=== PATIENT | male | born 1995 | race African-American/Black ===

== ENCOUNTER 2023-06-30 01:13 | Emergency (ER) | payer MEDICAID ==
[~2023-06-30] VITALS: Ht 188 cm; Wt 110.0 kg
[2023-06-30 01:15] VITALS: TEMP 97.9; O2SAT 100
[2023-06-30 01:39] LABS: BASOPHILS % 0.4 % (0.0-2.0); DIFFERENTIAL COMMENT 0; EOSINOPHILS % 2.4 % (0.0-5.0); HEMATOCRIT. 42.7 % (42.0-52.0); LYMPHOCYTES % 48.7 % (20.0-50.0); MEAN CORPUSCULAR HEMOGLOBIN 24.4 pg (28.0-32.0); MEAN CORPUSCULAR HGB CONC 32.8 g/dL (31.0-37.0); MEAN CORPUSCULAR VOLUME 74.4 fL (80.0-94.0); MEAN PLATELET VOLUME 8.1 fl (7.4-10.4); MONOCYTES % 7.5 % (2.0-8.0); PLATELET 192 x1000/uL (130-400); RED BLOOD CELL COUNT 5.74 mill/uL (4.7-6.1); RED CELL DISTRIBUTION WIDTH 13.9 % (11.6-14.6); WHITE BLOOD COUNT 6.5 x1000/uL (4.5-11.0)
[2023-06-30] MEDS: SODIUM CHLORIDE 0.9% 1,000 ML IV ONE (01:50)
[2023-06-30] MEDS: LEVETIRACETAM 500MG PREMIX 100 ML IV ONE (01:50)
[2023-06-30 02:05] LABS: ALANINE AMINOTRANSFERASE 12 IU/L (10-49); ALBUMIN 4.7 g/dL (3.2-4.8); ASPARTATE AMINOTRANSFERASE 17 IU/L (<34); BILIRUBIN TOTAL 0.6 mg/dL (0.1-1.0); CALCIUM 9.3 mg/dL (8.7-10.4); CARBON DIOXIDE 22 mEq/L (21-32); CHLORIDE 105 mEq/L (98-107); CREATININE 1.5 mg/dL (0.6-1.3); GLUCOSE 95 mg/dL (70-105); POTASSIUM 3.9 mEq/L (3.5-5.1); PROTEIN TOTAL 7.8 g/dL (6.0-8.3); SODIUM 139 mEq/L (136-145); UREA NITROGEN BLOOD 11 mg/dL (9-23)
[2023-06-30 02:20] LABS: ETHANOL BLOOD < 10 mg/dL (<10)
[2023-06-30 05:25] VITALS: BP 115/60; PULSE 70; RESP 17
== END 2023-06-30 05:44 | disposition home or self-care (01) ==
LOC: ER 01:13
DX: G40.901 Epilepsy, unspecified, not intractable, with status epilepticus (principal); Z91.148 Patient's other noncompliance with medication regimen for other reason; Z00.00 Encounter for general adult medical examination without abnormal findings
CPT/HCPCS: 80053; 80320; 82962; 85025; 36415; 96374; 99283; J1953; J7030; G0480

== ENCOUNTER 2024-03-23 17:18 | Emergency (ER) | payer MEDICAID ==
[~2024-03-23] VITALS: Ht 193 cm; Wt 104.0 kg
[2024-03-23 18:13] VITALS: O2SAT 98
[2024-03-23 23:59] LABS: HEMATOCRIT. 46.9 % (42.0-52.0); HEMOGLOBIN. 15.1 g/dL (14.0-18.0); MEAN CORPUSCULAR HGB CONC 32.1 g/dL (31.0-37.0); MEAN CORPUSCULAR VOLUME 74.6 fL (80.0-94.0); PLATELET 136 x1000/uL (130-400); RED BLOOD CELL COUNT 6.29 mill/uL (4.7-6.1); RED CELL DISTRIBUTION WIDTH 14.5 % (11.6-14.6); WHITE BLOOD COUNT 2.8 x1000/uL (4.5-11.0)
[2024-03-24 00:05] LABS: CARBON DIOXIDE 25 mEq/L (21-32); CHLORIDE 101 mEq/L (98-107); POTASSIUM 3.5 mEq/L (3.5-5.1); SODIUM 138 mEq/L (136-145)
[2024-03-24 00:06] LABS: CALCIUM 9.4 mg/dL (8.7-10.4)
[2024-03-24 00:08] LABS: DIFFERENTIAL COMMENT 1
[2024-03-24 00:11] LABS: CREATININE 1.4 mg/dL (0.6-1.3); GLUCOSE 98 mg/dL (70-105); UREA NITROGEN BLOOD 11 mg/dL (9-23)
[2024-03-24 00:12] LABS: ALANINE AMINOTRANSFERASE 16 IU/L (10-49); ASPARTATE AMINOTRANSFERASE 26 IU/L (<34)
[2024-03-24 00:13] LABS: ALBUMIN 4.6 g/dL (3.2-4.8); BILIRUBIN TOTAL 0.7 mg/dL (0.1-1.0); PROTEIN TOTAL 7.4 g/dL (6.0-8.3)
[2024-03-24] MEDS ORDERED: METH-653 MT (00:44)
[2024-03-24] MEDS ORDERED: ACET-2708 MT (00:44)
[2024-03-24 00:56] VITALS: BP 123/72; PULSE 89; RESP 19; TEMP 36.89184; O2SAT 98
[2024-03-24 06:53] LABS: MICROCYTOSIS 2+; PLATELET ESTIMATE NORMAL
== END 2024-03-24 07:39 | disposition home or self-care (01) ==
LOC: ER 17:18
DX: S23.3XXA Sprain of ligaments of thoracic spine, initial encounter (principal); J45.909 Unspecified asthma, uncomplicated; N17.9 Acute kidney failure, unspecified; X58.XXXA Exposure to other specified factors, initial encounter; Y93.89 Activity, other specified; Y92.89 Other specified places as the place of occurrence of the external cause; Y99.8 Other external cause status
CPT/HCPCS: 36415; 71045; 80053; 85025; 99284